=== PATIENT | male | born 1990 | race Caucasian/White ===

== ENCOUNTER 2018-12-09 08:24 | Emergency (ER) | payer BC, OTHER ==
[2018-12-09 08:46] VITALS: BP 117/66; PULSE 72; RESP 18; TEMP 98.3
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
== END 2018-12-09 10:36 | disposition home or self-care (01) ==
LOC: EC 08:24
DX: S02.2XXA Fracture of nasal bones, initial encounter for closed fracture (principal); S00.12XA Contusion of left eyelid and periocular area, initial encounter; F17.200 Nicotine dependence, unspecified, uncomplicated; Y09 Assault by unspecified means
CPT/HCPCS: 70486; 99284